=== PATIENT | male | born 1940 | race Caucasian/White ===

== ENCOUNTER 2019-03-08 10:31 | Inpatient (IN) | payer BC, MEDICARE, OTHER ==
[~2019-03-08] VITALS: Ht 180.3 cm; Wt 82.2 kg
[~2019-03-08 10:31] MED LIST: ENAL20TA PO; GLIP10TA13 PO; METF850T10 PO; SIMV40TA3 PO
--- NOTE | 2019-03-08 10:42 | NUR ---
PT BIB [facility] WITH WEAKNESS LAST FEW DAYS WITH FEVERS PER PT. + COUGH AND BS WAS 366. 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
[2019-03-08] MEDS ORDERED: UBID30CA PO (10:54)
[2019-03-08] MEDS ORDERED: OMEG1CAP23 PO (10:54)
[2019-03-08] MEDS ORDERED: SITA25TA PO (10:54)
[2019-03-08] MEDS ORDERED: ROSU20TA2 PO (10:54)
[2019-03-08] MEDS ORDERED: CHOL10003 PO (10:54)
[2019-03-08] MEDS ORDERED: METO25TA35 PO (10:54)
[2019-03-08] MEDS ORDERED: ASPI-496 PO (10:54)
[2019-03-08] MEDS ORDERED: MAGN300C PO (10:54)
[2019-03-08] MEDS ORDERED: MULT-658 PO (10:54)
--- NOTE | 2019-03-08 10:54 | NUR ---
REPORT TO RAFFAELE VILLEGAS
[2019-03-08] MEDS ORDERED: SODIUM CHLORIDE 0.9% 1,000 ML IV ONE (11:10)
[2019-03-08] MEDS ORDERED: SODIUM CHLORIDE FLUSH 10ML SYR IVF ONE (11:30)
[2019-03-08 11:50] LABS: MEAN CORPUSCULAR HEMOGLOBIN 31.5 pg (27.5-34.5); MEAN CORPUSCULAR HGB CONC 33.3 g/dL (33.2-36.2); MEAN CORPUSCULAR VOLUME 94.8 fL (81-97); MEAN PLATELET VOLUME 10.4 fL (7.4-10.4); PLATELET COUNT 156 x10^3/uL (130-400); RED BLOOD COUNT 5.26 x10^6/uL (4.38-5.82); RED CELL DISTRIBUTION WIDTH 13.5 % (9.4-14.8)
[2019-03-08 12:04] LABS: INTERNATIONAL NORMALIZED RATIO 1.16 (0.93-1.1); PROTHROMBIN TIME 12.1 Seconds (9.6-11.5)
[2019-03-08 12:08] LABS: ALANINE AMINOTRANSFERASE 31 U/L (12-78); ALBUMIN 3.1 g/dL (3.4-5.0); ANION GAP 12 mmol/L (5-15); CALCIUM 8.6 mg/dL (8.5-10.1); CHLORIDE 99 mmol/L (98-107); CREATININE 1.92 mg/dL (0.7-1.3)
[2019-03-08 12:11] LABS: ALKALINE PHOSPHATASE 72 U/L (45-117); BILIRUBIN,TOTAL 1.3 mg/dL (0.2-1.0); TOTAL PROTEIN 7.7 g/dL (6.4-8.2)
[2019-03-08 12:13] LABS: MD YES
[2019-03-08 12:15] LABS: BAND#(MANUAL) 1.28 x10^3/uL; BANDS%(MANUAL) 10 % (0-7); LYMPH#(MANUAL) 0.38 x10^3/uL (1-3.4); LYMPHS% (MANUAL) 3 % (22-44); MONOS#(MANUAL) 0.64 x10^3/uL (0.3-2.7); MONOS% (MANUAL) 5 % (2-9); SEGS% (MANUAL) 82 % (42-75)
[2019-03-08 12:16] LABS: <PLATELET ESTIMATE> ADEQUATE; <PLT MORPHOLOGY> NORMAL PLT MORPH; <RBC MORPHOLOGY> NORMAL
[2019-03-08] MEDS ORDERED: CEFTRIAXONE PMX 1GM/50ML 50 ML IV ONE (12:30)
[2019-03-08] MEDS ORDERED: PIPERACILLIN/TAZO/PMX 3.375GM 50 ML IVPB ONE (12:30)
[2019-03-08] MEDS ORDERED: INSULIN REGULAR 100 UNITS/ML, 3ML VIAL SQ-INSULIN ONE (12:30)
[2019-03-08] MEDS ORDERED: SODIUM CHLORIDE 0.9% 1,000ML IVBOLUS ONE (12:30)
[2019-03-08] MEDS ORDERED: VANCOMYCIN PER PHARMACY MC ONE (12:30)
[2019-03-08] MEDS ORDERED: PIPERACILLIN/TAZO/PMX 3.375GM 50 ML ONE (12:39)
[2019-03-08] MEDS ORDERED: INSULIN SINGLE DOSE, ER ONE (12:58)
[2019-03-08] MEDS ORDERED: VANCOMYCIN 1,700 MG in SODIUM CHLORIDE 0.9% 250 ML IV ONE (13:00)
[2019-03-08] MEDS ORDERED: VANCOMYCIN 1,800 MG in SODIUM CHLORIDE 0.9% 250 ML IV ONE ×2 (13:00→16:30)
[2019-03-08 13:02] LABS: CULTURE INDICATED? YES; MICROSCOPIC INDICATED
[2019-03-08 13:05] LABS: ACETONE, SERUM Small (20mg/dL) mg/dL (Negative)
[2019-03-08 15:04] VITALS: BP 126/74
[2019-03-08] MEDS ORDERED: LABETALOL 5MG/ML, 20ML IVPush PRN (15:30)
[2019-03-08] MEDS ORDERED: VANCOMYCIN PER PHARMACY MC PRN (15:30)
[2019-03-08] MEDS ORDERED: BISACODYL 10 MG SUPP PR PRN (15:30)
[2019-03-08] MEDS ORDERED: DEXTROSE 4 GM TAB.CHEW PO PRN (15:30)
[2019-03-08] MEDS ORDERED: DOCUSATE 100 MG CAPSULE PO PRN (15:30)
[2019-03-08] MEDS ORDERED: PHARMACY MAY ADJ FOR RENAL FX MC PRN (15:30)
[2019-03-08] MEDS ORDERED: ONDANSETRON 2MG/ML, 2ML IVPush PRN (15:30)
[2019-03-08] MEDS ORDERED: POLYETHYLENE GLYCOL 17 GM PACKET PO PRN (15:30)
[2019-03-08] MEDS ORDERED: MAGNESIUM SULFATE PMX 2GM/50ML 50 ML IV ONE (15:30)
[2019-03-08] MEDS ORDERED: GLUCAGON 1 MG IM PRN (15:30)
[2019-03-08] MEDS ORDERED: DEXTROSE 50%, 50ML SYRINGE IVPush PRN (15:30)
[2019-03-08] MEDS ORDERED: VANCOMYCIN 1,700 MG in SODIUM CHLORIDE 0.9% 250 ML IV SCH (16:00)
[2019-03-08] MEDS ORDERED: PHARMACOKINETIC MONITORING MC PRN (16:00)
[2019-03-08] MEDS ORDERED: ENOXAPARIN 40 MG/0.4 ML SQ SCH (16:00)
[2019-03-08] MEDS ORDERED: PHARMACOKINETIC CONSULTATION MC ONE (16:00)
[2019-03-08] MEDS: SODIUM CHLORIDE 0.9% 1,000 ML IV SCH (16:20)
[2019-03-08] MEDS: INSULIN LISPRO 100 UNITS/ML, PEN SQ-INSULIN SCH ×2 (16:32→19:57)
[2019-03-08] MEDS: ACETAMINOPHEN 325 MG TABLET PO PRN ×2 (16:38→21:31)
[2019-03-08 17:46] LABS: CREATININE,URINE RANDOM 56.6 mg/dL
[2019-03-08 19:21] VITALS: BP 110/67
[2019-03-08] MEDS: PIPERACILLIN/TAZO/PMX 3.375GM 50 ML IV SCH (19:56)
[2019-03-08] MEDS: INSULIN GLARGINE 100 UNITS/ML, PEN SQ-INSULIN SCH (19:57)
[2019-03-08] MEDS: SODIUM CHLORIDE FLUSH 10ML SYR IVF SCH (20:34)
[2019-03-09] VITALS (11 sets, daily range): BP systolic 106–133; BP diastolic 69–85
[2019-03-09] MEDS: SODIUM CHLORIDE 0.9% 1,000 ML IV SCH (00:38)
[2019-03-09] MEDS: PIPERACILLIN/TAZO/PMX 3.375GM 50 ML IV SCH ×3 (02:11→14:07)
[2019-03-09] MEDS: ASPIRIN 81 MG TABLET EC PO SCH (04:53)
[2019-03-09 06:18] LABS: MEAN CORPUSCULAR HEMOGLOBIN 31.7 pg (27.5-34.5); MEAN CORPUSCULAR HGB CONC 33.2 g/dL (33.2-36.2); MEAN CORPUSCULAR VOLUME 95.6 fL (81-97); MEAN PLATELET VOLUME 10.7 fL (7.4-10.4); PLATELET COUNT 153 x10^3/uL (130-400); RED BLOOD COUNT 4.59 x10^6/uL (4.38-5.82); RED CELL DISTRIBUTION WIDTH 13.8 % (9.4-14.8)
[2019-03-09 06:29] LABS: ALANINE AMINOTRANSFERASE 30 U/L (12-78); ALBUMIN 2.3 g/dL (3.4-5.0); ANION GAP 11 mmol/L (5-15); CALCIUM 7.7 mg/dL (8.5-10.1); CHLORIDE 104 mmol/L (98-107); CREATININE 1.69 mg/dL (0.7-1.3)
[2019-03-09 06:39] LABS: ALKALINE PHOSPHATASE 61 U/L (45-117); BILIRUBIN,TOTAL 1.5 mg/dL (0.2-1.0); TOTAL PROTEIN 6.4 g/dL (6.4-8.2); VANCOMYCIN,RANDOM 9.9 mcg/mL
[2019-03-09 07:26] LABS: MD YES
[2019-03-09 07:27] LABS: BAND#(MANUAL) 1.26 x10^3/uL; BANDS%(MANUAL) 9 % (0-7); LYMPH#(MANUAL) 0.14 x10^3/uL (1-3.4); LYMPHS% (MANUAL) 1 % (22-44); MONOS#(MANUAL) 0.42 x10^3/uL (0.3-2.7); MONOS% (MANUAL) 3 % (2-9); SEG#(MANUAL) 12.18 x10^3/uL (1.8-6.8); SEGS% (MANUAL) 87 % (42-75)
[2019-03-09 07:28] LABS: <PLATELET ESTIMATE> ADEQUATE; <RBC MORPHOLOGY> NORMAL; LARGE PLATELETS 1+
[2019-03-09] MEDS ORDERED: SODIUM CHLORIDE 0.9% 1,000 ML IV SCH (07:30)
[2019-03-09] MEDS: AZITHROMYCIN 500 MG in SODIUM CHLORIDE 0.9% 250 ML IV SCH (07:53)
[2019-03-09] MEDS: INSULIN LISPRO 100 UNITS/ML, PEN SQ-INSULIN SCH ×4 (07:53→23:59)
[2019-03-09] MEDS ORDERED: SODIUM CHLORIDE 0.9% 1,000ML IVBOLUS ONE (08:00)
[2019-03-09] MEDS ORDERED: METOPROLOL 1 MG/ML, 5ML ONE (08:48)
[2019-03-09] MEDS ORDERED: METOPROLOL 1 MG/ML, 5ML IVPush SCH (09:00)
[2019-03-09] MEDS ORDERED: TEMPLATE NON-FORMULARY MED. (Rosuvastatin Calcium** (Crestor**) 20 MG) PO SCH (09:00)
[2019-03-09] MEDS ORDERED: METOPROLOL TARTRATE 25 MG TABLET PO SCH ×2 (09:00→15:30)
[2019-03-09] MEDS: INSULIN GLARGINE 100 UNITS/ML, PEN SQ-INSULIN SCH (09:00)
[2019-03-09] MEDS: SODIUM CHLORIDE FLUSH 10ML SYR IVF SCH ×2 (09:26→21:08)
[2019-03-09] MEDS ORDERED: METOPROLOL 1 MG/ML, 5ML IVPush ONE ×3 (09:30→09:40)
[2019-03-09] MEDS: CHOLECALCIFEROL 1,000 UNIT TABLET PO SCH (09:50)
[2019-03-09] MEDS ORDERED: DILTIAZEM 125 MG in SODIUM CHLORIDE 0.9% 100 ML IV SCH ×2 (11:30→12:30)
[2019-03-09] MEDS ORDERED: VANCOMYCIN 1,700 MG in SODIUM CHLORIDE 0.9% 250 ML IV SCH (12:00)
[2019-03-09] MEDS: HEPARIN 5,000 UNITS/ML, 1ML SQ SCH (14:07)
[2019-03-09] MEDS: GUAIFENESIN 200 MG TABLET PO SCH (16:24)
[2019-03-09] MEDS: LINEZOLID PMX 600MG/300ML 300 ML IV SCH (16:37)
[2019-03-09] MEDS ORDERED: SODIUM BICARBONATE 650 MG TABLET ONE (17:10)
[2019-03-09] MEDS ORDERED: DIGOXIN 0.25 MG/ML, 2ML IVPush ONE (18:00)
[2019-03-09] MEDS ORDERED: FENTANYL PF 100 MCG/2ML ONE (20:31)
[2019-03-09] MEDS ORDERED: ROCURONIUM 10MG/ML,5ML ONE (20:34)
[2019-03-09] MEDS ORDERED: PROPOFOL 10 MG/ML, 20ML ONE (20:34)
[2019-03-09] MEDS ORDERED: SUCCINYLCHOLINE 20 MG/ML, 10ML ONE (20:34)
[2019-03-09] MEDS ORDERED: DEXAMETHASONE 4 MG/ML, 1ML ONE (20:36)
[2019-03-09] MEDS ORDERED: EPINEPHRINE 1 MG/ML, 1ML ONE (20:36)
[2019-03-09] MEDS ORDERED: MIDAZOLAM 1 MG/ML, 5ML ONE (20:55)
[2019-03-09] MEDS ORDERED: LACTATED RINGERS 1,000 ML IVBOLUS ONE (21:30)
[2019-03-09] MEDS ORDERED: PROPOFOL 100 ML IV ONE (21:43)
[2019-03-09] MEDS ORDERED: PROPOFOL 100 ML IV PRN (21:46)
[2019-03-09] MEDS: PROPOFOL 100 ML IV PRN (21:50)
[2019-03-09] MEDS ORDERED: PHARMACY MAY ADJ FOR RENAL FX MC SCH (22:00)
[2019-03-09] MEDS ORDERED: FENTANYL PF 100 MCG/2ML IVPush PRN (22:00)
[2019-03-09] MEDS: ALBUTEROL SULFATE 2.5 MG/3 ML INLINE SCH (22:00)
[2019-03-09] MEDS ORDERED: BISACODYL 10 MG SUPP PR PRN (22:00)
[2019-03-09] MEDS ORDERED: DEXTROSE 4 GM TAB.CHEW PO PRN (22:00)
[2019-03-09] MEDS ORDERED: SENNA/DOCUSATE TABLET NG PRN (22:00)
[2019-03-09] MEDS ORDERED: SENNA 176 MG/5 ML ORAL SOL NG PRN (22:00)
[2019-03-09] MEDS ORDERED: DEXTROSE 50%, 50ML SYRINGE IVPush PRN (22:00)
[2019-03-09] MEDS ORDERED: LACTULOSE 20 GM/30 ML UDC NG PRN (22:00)
[2019-03-09] MEDS ORDERED: GLUCAGON 1 MG IM PRN (22:00)
[2019-03-09] MEDS ORDERED: LIDOCAINE-MPF 1%, 2ML ENDO PRN (22:00)
[2019-03-09] MEDS ORDERED: AMIODARONE 150 MG in DEXTROSE 5% 100 ML IV STA (22:06)
[2019-03-09] MEDS ORDERED: SODIUM BICARBONATE 1 MEQ/ML, 50ML VIAL IVPush STA (22:30)
[2019-03-09] MEDS ORDERED: FILTER 0.22 MICRON IV PRN (22:30)
[2019-03-09 22:34] LABS: BASOPHILS # (AUTO) 0.01 x10^3/uL (0-0.1); BASOPHILS % (AUTO) 0 % (0-1); EOSINOPHILS # (AUTO) 0.01 x10^3/uL (0-0.4); EOSINOPHILS % (AUTO) 0 % (1-7); LYMPHOCYTES # (AUTO) 0.88 x10^3/uL (1-3.4); LYMPHOCYTES % (AUTO) 6 % (22-44); MD NO; MONOCYTES # (AUTO) 0.32 x10^3/uL (0.2-0.8); MONOCYTES % (AUTO) 2 % (2-9); NEUTROPHILS # (AUTO) 14.16 x10^3/uL (1.8-6.8); NEUTROPHILS % (AUTO) 92 % (42-75); RED BLOOD COUNT 5.06 x10^6/uL (4.38-5.82)
[2019-03-09 22:43] LABS: INTERNATIONAL NORMALIZED RATIO 1.2 (0.93-1.1); PROTHROMBIN TIME 12.5 Seconds (9.6-11.5)
[2019-03-09 22:47] LABS: MEAN CORPUSCULAR HEMOGLOBIN 31.2 pg (27.5-34.5); MEAN CORPUSCULAR HGB CONC 32.5 g/dL (33.2-36.2); MEAN CORPUSCULAR VOLUME 96.3 fL (81-97); MEAN PLATELET VOLUME 10.7 fL (7.4-10.4); PLATELET COUNT 194 x10^3/uL (130-400); RED CELL DISTRIBUTION WIDTH 14.2 % (9.4-14.8)
[2019-03-09 22:59] LABS: ANION GAP 9 mmol/L (5-15); CALCIUM 7.8 mg/dL (8.5-10.1); CHLORIDE 108 mmol/L (98-107); CREATININE 1.77 mg/dL (0.7-1.3); TRIGLYCERIDES 182 mg/dL (50-200)
[2019-03-09 23:18] LABS: TROPONIN I 0.257 ng/mL (0.000-0.045)
[2019-03-09] MEDS: AMIODARONE 900 MG in DEXTROSE 5% 482 ML IV PRN (23:24)
[2019-03-10] MEDS: PIPERACILLIN/TAZO/PMX 3.375GM 50 ML IV SCH ×4 (00:01→17:56)
[2019-03-10] MEDS: HEPARIN 5,000 UNITS/ML, 1ML SQ SCH ×4 (00:02→21:01)
[2019-03-10] MEDS: INSULIN GLARGINE 100 UNITS/ML, PEN SQ-INSULIN SCH ×3 (00:05→20:47)
[2019-03-10] MEDS: METOPROLOL TARTRATE 25 MG TABLET PO SCH ×4 (00:32→20:28)
[2019-03-10] MEDS: SODIUM BICARBONATE 650 MG TABLET PO SCH ×3 (00:33→20:29)
[2019-03-10] MEDS: GUAIFENESIN 200 MG TABLET PO SCH ×5 (00:33→20:29)
[2019-03-10] MEDS: FAMOTIDINE 20 MG/2 ML IV SCH ×2 (00:47→11:48)
[2019-03-10] MEDS: ALBUTEROL SULFATE 2.5 MG/3 ML INLINE SCH ×5 (02:00→22:10)
[2019-03-10 04:29] LABS: ALANINE AMINOTRANSFERASE 28 U/L (12-78); ALBUMIN 1.7 g/dL (3.4-5.0); ANION GAP 7 mmol/L (5-15); CALCIUM 7.2 mg/dL (8.5-10.1); CHLORIDE 110 mmol/L (98-107); CREATININE 1.58 mg/dL (0.7-1.3)
[2019-03-10 04:33] LABS: MEAN CORPUSCULAR HEMOGLOBIN 31.6 pg (27.5-34.5); MEAN CORPUSCULAR VOLUME 95.8 fL (81-97); MEAN PLATELET VOLUME 10.9 fL (7.4-10.4); PLATELET COUNT 154 x10^3/uL (130-400); RED BLOOD COUNT 4.14 x10^6/uL (4.38-5.82); RED CELL DISTRIBUTION WIDTH 13.8 % (9.4-14.8)
[2019-03-10 04:34] LABS: ALKALINE PHOSPHATASE 51 U/L (45-117); BILIRUBIN,TOTAL 0.8 mg/dL (0.2-1.0); TOTAL PROTEIN 5.5 g/dL (6.4-8.2); TROPONIN I 0.201 ng/mL (0.000-0.045)
[2019-03-10] MEDS: LINEZOLID PMX 600MG/300ML 300 ML IV SCH ×2 (04:59→15:56)
[2019-03-10] MEDS: PROPOFOL 100 ML IV PRN (04:59)
[2019-03-10 05:00] LABS: MD YES
[2019-03-10 05:02] LABS: <PLATELET ESTIMATE> ADEQUATE; ANISOCYTOSIS 1+; BAND#(MANUAL) 1.02 x10^3/uL; BANDS%(MANUAL) 9 % (0-7); LARGE PLATELETS 1+; LYMPH#(MANUAL) 0.57 x10^3/uL (1-3.4); LYMPHS% (MANUAL) 5 % (22-44); MONOS#(MANUAL) 0.11 x10^3/uL (0.3-2.7); MONOS% (MANUAL) 1 % (2-9); REACTIVE LYMPHS # (MANUAL) 0.11 x10^3/uL (0-0); REACTIVE LYMPHS % (MANUAL) 1 % (0-0); SEG#(MANUAL) 9.49 x10^3/uL (1.8-6.8); SEGS% (MANUAL) 84 % (42-75)
[2019-03-10] MEDS: ASPIRIN 81 MG TABLET EC PO SCH (05:16)
[2019-03-10] MEDS ORDERED: ATORVASTATIN 40 MG TABLET PO SCH (09:00)
[2019-03-10] MEDS: INSULIN LISPRO 100 UNITS/ML, PEN SQ-INSULIN SCH ×2 (09:10→20:46)
[2019-03-10] MEDS: CHOLECALCIFEROL 1,000 UNIT TABLET PO SCH (09:21)
[2019-03-10] MEDS: SODIUM CHLORIDE FLUSH 10ML SYR IVF SCH ×4 (09:21→20:52)
[2019-03-10] MEDS: AZITHROMYCIN 500 MG in SODIUM CHLORIDE 0.9% 250 ML IV SCH (09:48)
[2019-03-10] MEDS ORDERED: DILTIAZEM 125 MG in SODIUM CHLORIDE 0.9% 100 ML IV SCH ×2 (11:30→12:30)
[2019-03-10] MEDS ORDERED: INSULIN LISPRO 100 UNITS/ML, PEN SQ-INSULIN SCH ×2 (15:00→16:00)
[2019-03-10] MEDS ORDERED: FUROSEMIDE 20 MG/2 ML ONE (15:15)
[2019-03-10] MEDS: INSULIN REGULAR 100 UNITS/ML, 3ML VIAL SQ-INSULIN SCH ×2 (15:22→20:47)
[2019-03-10] MEDS ORDERED: FUROSEMIDE 20 MG/2 ML IV ONE (15:30)
[2019-03-10] MEDS ORDERED: DILTIAZEM 5 MG/ML, 5ML IVPush PRN (17:00)
[2019-03-10] MEDS: ATORVASTATIN 80 MG TABLET PO SCH (20:28)
[2019-03-10] MEDS: AMIODARONE 900 MG in DEXTROSE 5% 482 ML IV PRN (23:12)
[2019-03-11] MEDS: PIPERACILLIN/TAZO/PMX 3.375GM 50 ML IV SCH ×2 (00:43→07:49)
[2019-03-11] MEDS: ALBUTEROL SULFATE 2.5 MG/3 ML INLINE SCH ×6 (02:10→22:20)
[2019-03-11] MEDS: INSULIN REGULAR 100 UNITS/ML, 3ML VIAL SQ-INSULIN SCH ×2 (03:00→09:59)
[2019-03-11] MEDS: INSULIN LISPRO 100 UNITS/ML, PEN SQ-INSULIN SCH ×4 (03:00→21:32)
[2019-03-11] MEDS: LINEZOLID PMX 600MG/300ML 300 ML IV SCH (04:28)
[2019-03-11 04:35] LABS: MEAN CORPUSCULAR HEMOGLOBIN 31.4 pg (27.5-34.5); MEAN CORPUSCULAR HGB CONC 32.9 g/dL (33.2-36.2); MEAN CORPUSCULAR VOLUME 95.5 fL (81-97); MEAN PLATELET VOLUME 10.9 fL (7.4-10.4); PLATELET COUNT 200 x10^3/uL (130-400); RED BLOOD COUNT 4.29 x10^6/uL (4.38-5.82); RED CELL DISTRIBUTION WIDTH 14.2 % (9.4-14.8)
[2019-03-11 04:46] LABS: MD YES
[2019-03-11 04:51] LABS: <PLATELET ESTIMATE> ADEQUATE; <RBC MORPHOLOGY> NORMAL; BAND#(MANUAL) 1.14 x10^3/uL; BANDS%(MANUAL) 8 % (0-7); LYMPH#(MANUAL) 0.99 x10^3/uL (1-3.4); LYMPHS% (MANUAL) 7 % (22-44); MONOS#(MANUAL) 0.43 x10^3/uL (0.3-2.7); MONOS% (MANUAL) 3 % (2-9); SEG#(MANUAL) 11.64 x10^3/uL (1.8-6.8); SEGS% (MANUAL) 82 % (42-75)
[2019-03-11 04:52] LABS: LARGE PLATELETS 1+
[2019-03-11] MEDS: GUAIFENESIN 200 MG TABLET PO SCH ×4 (05:04→21:24)
[2019-03-11] MEDS: HEPARIN 5,000 UNITS/ML, 1ML SQ SCH ×2 (05:05→16:50)
[2019-03-11] MEDS: METOPROLOL TARTRATE 25 MG TABLET PO SCH ×3 (05:05→21:30)
[2019-03-11] MEDS: ASPIRIN 81 MG TABLET EC PO SCH (05:05)
[2019-03-11 07:00] LABS: CALCIUM 7.9 mg/dL (8.5-10.1); CHLORIDE 117 mmol/L (98-107); CREATININE 1.56 mg/dL (0.7-1.3)
[2019-03-11 07:24] LABS: ANION GAP 7 mmol/L (5-15)
[2019-03-11] MEDS: AZITHROMYCIN 500 MG in SODIUM CHLORIDE 0.9% 250 ML IV SCH (07:49)
[2019-03-11] MEDS ORDERED: FUROSEMIDE 20 MG/2 ML IV SCH (09:00)
[2019-03-11] MEDS: FAMOTIDINE 20 MG/2 ML IV SCH (09:55)
[2019-03-11] MEDS: SODIUM CHLORIDE FLUSH 10ML SYR IVF SCH ×2 (09:55→21:23)
[2019-03-11] MEDS: APIXABAN 5 MG TABLET PO SCH ×2 (09:56→21:23)
[2019-03-11] MEDS: AMIODARONE 200 MG TABLET PO SCH ×2 (09:56→21:23)
[2019-03-11] MEDS: CHOLECALCIFEROL 1,000 UNIT TABLET PO SCH (09:56)
[2019-03-11] MEDS: SODIUM BICARBONATE 650 MG TABLET PO SCH (09:56)
[2019-03-11] MEDS: INSULIN GLARGINE 100 UNITS/ML, PEN SQ-INSULIN SCH ×2 (10:00→21:32)
[2019-03-11] MEDS: CEFTRIAXONE PMX 2GM/50ML 50 ML IVPB SCH (10:06)
[2019-03-11] MEDS: DEXMEDETOMIDINE 200 MCG in SODIUM CHLORIDE 0.9% 48 ML IV PRN ×2 (14:29→21:22)
[2019-03-11] MEDS ORDERED: AMIODARONE 150 MG in DEXTROSE 5% 100 ML IV ONE (14:30)
[2019-03-11] MEDS ORDERED: AMIODARONE 50 MG/ML, 3ML IVPush ONE (14:30)
[2019-03-11] MEDS: ATORVASTATIN 80 MG TABLET PO SCH (21:24)
[2019-03-12] MEDS: ALBUTEROL SULFATE 2.5 MG/3 ML INLINE SCH ×2 (02:55→06:00)
[2019-03-12] MEDS: INSULIN LISPRO 100 UNITS/ML, PEN SQ-INSULIN SCH ×4 (03:00→20:24)
[2019-03-12 04:33] LABS: MEAN CORPUSCULAR HEMOGLOBIN 31.6 pg (27.5-34.5); MEAN CORPUSCULAR HGB CONC 33.1 g/dL (33.2-36.2); MEAN CORPUSCULAR VOLUME 95.3 fL (81-97); MEAN PLATELET VOLUME 10.8 fL (7.4-10.4); PLATELET COUNT 207 x10^3/uL (130-400); RED BLOOD COUNT 4.09 x10^6/uL (4.38-5.82); RED CELL DISTRIBUTION WIDTH 13.9 % (9.4-14.8)
[2019-03-12 05:39] LABS: MD YES
[2019-03-12 05:41] LABS: BAND#(MANUAL) 0.43 x10^3/uL; BANDS%(MANUAL) 5 % (0-7); EOS#(MANUAL) 0.09 x10^3/uL (0.0-0.4); EOS% (MANUAL) 1 % (1-7); LYMPH#(MANUAL) 0.52 x10^3/uL (1-3.4); LYMPHS% (MANUAL) 6 % (22-44); MONOS#(MANUAL) 0.34 x10^3/uL (0.3-2.7); MONOS% (MANUAL) 4 % (2-9); PMNS WITH VACUOLES 1+; SEG#(MANUAL) 7.22 x10^3/uL (1.8-6.8); SEGS% (MANUAL) 84 % (42-75)
[2019-03-12 05:42] LABS: <PLATELET ESTIMATE> ADEQUATE; <RBC MORPHOLOGY> NORMAL; LARGE PLATELETS 1+
[2019-03-12] MEDS: GUAIFENESIN 200 MG TABLET PO SCH ×4 (05:59→20:30)
[2019-03-12] MEDS: METOPROLOL TARTRATE 25 MG TABLET PO SCH ×3 (05:59→21:43)
[2019-03-12 06:56] LABS: ANION GAP 7 mmol/L (5-15); CALCIUM 7.8 mg/dL (8.5-10.1); CHLORIDE 117 mmol/L (98-107); CREATININE 1.59 mg/dL (0.7-1.3)
[2019-03-12] MEDS: FAMOTIDINE 20 MG/2 ML IV SCH (09:10)
[2019-03-12] MEDS: CHOLECALCIFEROL 1,000 UNIT TABLET PO SCH (09:10)
[2019-03-12] MEDS: AMIODARONE 200 MG TABLET PO SCH ×2 (09:11→20:16)
[2019-03-12] MEDS: APIXABAN 5 MG TABLET PO SCH ×2 (09:11→20:16)
[2019-03-12] MEDS: SODIUM CHLORIDE FLUSH 10ML SYR IVF SCH ×2 (09:12→20:17)
--- NOTE | 2019-03-12 10:40 | NUR ---
TF GOAL: PROMOTE @ 80ML/HR (if propofol resumes: 70ml/hr)
[2019-03-12] MEDS: INSULIN GLARGINE 100 UNITS/ML, PEN SQ-INSULIN SCH ×2 (11:06→20:22)
[2019-03-12] MEDS: CEFTRIAXONE PMX 2GM/50ML 50 ML IVPB SCH (11:06)
[2019-03-12] MEDS: ATORVASTATIN 80 MG TABLET PO SCH (20:16)
[2019-03-13 04:35] LABS: BASOPHILS # (AUTO) 0.02 x10^3/uL (0-0.1); BASOPHILS % (AUTO) 0 % (0-1); EOSINOPHILS # (AUTO) 0.17 x10^3/uL (0-0.4); EOSINOPHILS % (AUTO) 2 % (1-7); LYMPHOCYTES # (AUTO) 0.63 x10^3/uL (1-3.4); LYMPHOCYTES % (AUTO) 7 % (22-44); MD NO; MEAN CORPUSCULAR HEMOGLOBIN 31.3 pg (27.5-34.5); MEAN CORPUSCULAR VOLUME 94.9 fL (81-97); MEAN PLATELET VOLUME 10.4 fL (7.4-10.4); MONOCYTES # (AUTO) 0.36 x10^3/uL (0.2-0.8); MONOCYTES % (AUTO) 4 % (2-9); NEUTROPHILS # (AUTO) 7.53 x10^3/uL (1.8-6.8); NEUTROPHILS % (AUTO) 86 % (42-75); PLATELET COUNT 232 x10^3/uL (130-400); RED CELL DISTRIBUTION WIDTH 14.2 % (9.4-14.8)
[2019-03-13 04:50] LABS: ANION GAP 6 mmol/L (5-15); CALCIUM 7.8 mg/dL (8.5-10.1); CHLORIDE 113 mmol/L (98-107); CREATININE 1.22 mg/dL (0.7-1.3)
[2019-03-13] MEDS: METOPROLOL TARTRATE 25 MG TABLET PO SCH (05:17)
[2019-03-13] MEDS: GUAIFENESIN 200 MG TABLET PO SCH ×4 (05:17→20:20)
[2019-03-13] MEDS: FAMOTIDINE 20 MG/2 ML IV SCH (08:34)
[2019-03-13] MEDS: APIXABAN 5 MG TABLET PO SCH ×2 (08:34→20:20)
[2019-03-13] MEDS: AMIODARONE 200 MG TABLET PO SCH ×2 (08:34→20:20)
[2019-03-13] MEDS: CHOLECALCIFEROL 1,000 UNIT TABLET PO SCH (08:34)
[2019-03-13] MEDS: INSULIN GLARGINE 100 UNITS/ML, PEN SQ-INSULIN SCH ×2 (08:35→20:36)
[2019-03-13] MEDS: INSULIN LISPRO 100 UNITS/ML, PEN SQ-INSULIN SCH ×4 (08:36→20:36)
[2019-03-13] MEDS: CEFTRIAXONE PMX 2GM/50ML 50 ML IVPB SCH (11:11)
[2019-03-13] MEDS: SODIUM CHLORIDE FLUSH 10ML SYR IVF SCH ×2 (11:12→20:35)
[2019-03-13 14:39] VITALS: BP 132/62
[2019-03-13] MEDS ORDERED: FAMOTIDINE 20 MG/2 ML IV SCH (15:30)
[2019-03-13 20:15] VITALS: BP 150/76
[2019-03-13] MEDS: FAMOTIDINE 20 MG TABLET PO SCH (20:20)
[2019-03-13] MEDS: ATORVASTATIN 80 MG TABLET PO SCH (20:20)
[2019-03-13] MEDS ORDERED: METOPROLOL TARTRATE 25 MG TABLET PO SCH (21:00)
[2019-03-14 03:15] VITALS: BP 141/71
[2019-03-14 04:30] LABS: ANION GAP 6 mmol/L (5-15); BASOPHILS # (AUTO) 0.01 x10^3/uL (0-0.1); BASOPHILS % (AUTO) 0 % (0-1); CALCIUM 8.2 mg/dL (8.5-10.1); CHLORIDE 115 mmol/L (98-107); EOSINOPHILS # (AUTO) 0.46 x10^3/uL (0-0.4); EOSINOPHILS % (AUTO) 6 % (1-7); LYMPHOCYTES # (AUTO) 0.71 x10^3/uL (1-3.4); LYMPHOCYTES % (AUTO) 9 % (22-44); MD NO; MEAN CORPUSCULAR HEMOGLOBIN 31.9 pg (27.5-34.5); MEAN CORPUSCULAR VOLUME 93.9 fL (81-97); MEAN PLATELET VOLUME 9.2 fL (7.4-10.4); MONOCYTES # (AUTO) 0.12 x10^3/uL (0.2-0.8); MONOCYTES % (AUTO) 2 % (2-9); NEUTROPHILS # (AUTO) 6.33 x10^3/uL (1.8-6.8); NEUTROPHILS % (AUTO) 83 % (42-75); PLATELET COUNT 281 x10^3/uL (130-400); RED BLOOD COUNT 4.21 x10^6/uL (4.38-5.82); RED CELL DISTRIBUTION WIDTH 13.9 % (9.4-14.8)
[2019-03-14] MEDS: GUAIFENESIN 200 MG TABLET PO SCH ×4 (06:18→21:30)
[2019-03-14] MEDS: INSULIN LISPRO 100 UNITS/ML, PEN SQ-INSULIN SCH ×4 (07:00→21:00)
[2019-03-14 08:00] VITALS: BP 151/84
[2019-03-14] MEDS: APIXABAN 5 MG TABLET PO SCH ×2 (09:34→21:30)
[2019-03-14] MEDS: FAMOTIDINE 20 MG TABLET PO SCH ×2 (09:35→21:30)
[2019-03-14] MEDS: CHOLECALCIFEROL 1,000 UNIT TABLET PO SCH (09:35)
[2019-03-14] MEDS: INSULIN GLARGINE 100 UNITS/ML, PEN SQ-INSULIN SCH ×2 (09:50→21:31)
[2019-03-14] MEDS: METOPROLOL TARTRATE 50 MG TABLET PO SCH ×2 (10:00→18:14)
[2019-03-14] MEDS: SODIUM CHLORIDE FLUSH 10ML SYR IVF SCH (10:28)
[2019-03-14] MEDS: CEFTRIAXONE PMX 2GM/50ML 50 ML IVPB SCH (10:29)
[2019-03-14 14:00] VITALS: BP 146/76
[2019-03-14 17:37] VITALS: BP 144/75
[2019-03-14 18:41] VITALS: BP 139/72
[2019-03-14] MEDS: AMIODARONE 200 MG TABLET PO SCH (21:30)
[2019-03-14] MEDS: ATORVASTATIN 80 MG TABLET PO SCH (21:30)
[2019-03-15 01:54] VITALS: BP 133/68
[2019-03-15 05:27] LABS: BASOPHILS # (AUTO) 0.01 x10^3/uL (0-0.1); BASOPHILS % (AUTO) 0 % (0-1); EOSINOPHILS % (AUTO) 6 % (1-7); LYMPHOCYTES # (AUTO) 0.72 x10^3/uL (1-3.4); LYMPHOCYTES % (AUTO) 8 % (22-44); MD NO; MEAN CORPUSCULAR HEMOGLOBIN 30.7 pg (27.5-34.5); MEAN CORPUSCULAR HGB CONC 32.6 g/dL (33.2-36.2); MEAN CORPUSCULAR VOLUME 94.4 fL (81-97); MONOCYTES # (AUTO) 0.51 x10^3/uL (0.2-0.8); MONOCYTES % (AUTO) 6 % (2-9); NEUTROPHILS # (AUTO) 7.44 x10^3/uL (1.8-6.8); NEUTROPHILS % (AUTO) 81 % (42-75); PLATELET COUNT 322 x10^3/uL (130-400); RED BLOOD COUNT 4.44 x10^6/uL (4.38-5.82)
[2019-03-15 05:31] LABS: CHLORIDE 113 mmol/L (98-107)
[2019-03-15 05:44] LABS: ANION GAP 6 mmol/L (5-15); CALCIUM 8.4 mg/dL (8.5-10.1); CREATININE 0.98 mg/dL (0.7-1.3)
[2019-03-15 05:57] VITALS: BP 124/69
[2019-03-15] MEDS: METOPROLOL TARTRATE 50 MG TABLET PO SCH ×2 (05:58→17:27)
[2019-03-15] MEDS: GUAIFENESIN 200 MG TABLET PO SCH ×4 (05:58→20:47)
[2019-03-15 07:30] VITALS: BP 137/76
[2019-03-15] MEDS: APIXABAN 5 MG TABLET PO SCH (08:30)
[2019-03-15] MEDS: CHOLECALCIFEROL 1,000 UNIT TABLET PO SCH (08:44)
[2019-03-15] MEDS: FAMOTIDINE 20 MG TABLET PO SCH ×2 (08:44→20:47)
[2019-03-15] MEDS: LISINOPRIL 5 MG TABLET PO SCH (08:44)
[2019-03-15] MEDS: AMIODARONE 200 MG TABLET PO SCH ×2 (08:44→20:46)
[2019-03-15] MEDS: INSULIN GLARGINE 100 UNITS/ML, PEN SQ-INSULIN SCH ×2 (08:44→20:48)
[2019-03-15] MEDS: INSULIN LISPRO 100 UNITS/ML, PEN SQ-INSULIN SCH ×4 (08:45→20:48)
[2019-03-15] MEDS: CEFTRIAXONE PMX 2GM/50ML 50 ML IVPB SCH (10:07)
[2019-03-15 13:01] VITALS: BP 110/63
[2019-03-15 15:00] LABS: OCCULT BLOOD POSITIVE (NEGATIVE)
[2019-03-15 16:18] LABS: TROPONIN I 0.047 ng/mL (0.000-0.045)
[2019-03-15 17:24] VITALS: BP 116/63
[2019-03-15 18:53] VITALS: BP 102/62
[2019-03-15] MEDS: ATORVASTATIN 80 MG TABLET PO SCH (20:47)
[2019-03-16 01:53] VITALS: BP 116/61
[2019-03-16 04:44] LABS: BASOPHILS # (AUTO) 0.01 x10^3/uL (0-0.1); BASOPHILS % (AUTO) 0 % (0-1); EOSINOPHILS # (AUTO) 0.53 x10^3/uL (0-0.4); EOSINOPHILS % (AUTO) 5 % (1-7); LYMPHOCYTES # (AUTO) 1.04 x10^3/uL (1-3.4); LYMPHOCYTES % (AUTO) 10 % (22-44); MD NO; MEAN CORPUSCULAR HEMOGLOBIN 31.3 pg (27.5-34.5); MEAN CORPUSCULAR HGB CONC 32.7 g/dL (33.2-36.2); MEAN CORPUSCULAR VOLUME 95.6 fL (81-97); MEAN PLATELET VOLUME 9.8 fL (7.4-10.4); MONOCYTES # (AUTO) 0.64 x10^3/uL (0.2-0.8); MONOCYTES % (AUTO) 6 % (2-9); NEUTROPHILS # (AUTO) 7.85 x10^3/uL (1.8-6.8); NEUTROPHILS % (AUTO) 78 % (42-75); PLATELET COUNT 339 x10^3/uL (130-400); RED BLOOD COUNT 4.36 x10^6/uL (4.38-5.82); RED CELL DISTRIBUTION WIDTH 14.1 % (9.4-14.8)
[2019-03-16 04:53] LABS: ANION GAP 4 mmol/L (5-15); CALCIUM 8.1 mg/dL (8.5-10.1); CHLORIDE 116 mmol/L (98-107); CREATININE 1.05 mg/dL (0.7-1.3)
[2019-03-16] MEDS: GUAIFENESIN 200 MG TABLET PO SCH ×4 (04:55→20:19)
[2019-03-16 07:08] VITALS: BP 115/72
[2019-03-16] MEDS: INSULIN LISPRO 100 UNITS/ML, PEN SQ-INSULIN SCH ×4 (08:23→20:20)
[2019-03-16] MEDS ORDERED: REGADENOSON 0.4 MG/5 ML SYRINGE ONE (08:51)
[2019-03-16] MEDS: CEFTRIAXONE PMX 2GM/50ML 50 ML IVPB SCH (11:40)
[2019-03-16] MEDS: LISINOPRIL 5 MG TABLET PO SCH (11:41)
[2019-03-16] MEDS: AMIODARONE 200 MG TABLET PO SCH ×2 (11:41→20:19)
[2019-03-16] MEDS: CHOLECALCIFEROL 1,000 UNIT TABLET PO SCH (11:41)
[2019-03-16] MEDS: FAMOTIDINE 20 MG TABLET PO SCH ×2 (11:41→20:19)
[2019-03-16] MEDS: INSULIN GLARGINE 100 UNITS/ML, PEN SQ-INSULIN SCH ×2 (11:42→20:20)
[2019-03-16] MEDS: METOPROLOL TARTRATE 50 MG TABLET PO SCH ×2 (11:47→17:19)
[2019-03-16 13:19] VITALS: BP 121/68
[2019-03-16 17:20] VITALS: BP 147/75
[2019-03-16] MEDS: ATORVASTATIN 80 MG TABLET PO SCH (20:19)
[2019-03-16 20:28] VITALS: BP 133/66
[2019-03-16 20:41] LABS: OCCULT BLOOD NEGATIVE (NEGATIVE)
[2019-03-17 01:36] VITALS: BP 131/60
[2019-03-17 05:34] LABS: BASOPHILS # (AUTO) 0.03 x10^3/uL (0-0.1); BASOPHILS % (AUTO) 0 % (0-1); EOSINOPHILS # (AUTO) 0.45 x10^3/uL (0-0.4); EOSINOPHILS % (AUTO) 4 % (1-7); LYMPHOCYTES # (AUTO) 1.09 x10^3/uL (1-3.4); LYMPHOCYTES % (AUTO) 11 % (22-44); MD NO; MEAN CORPUSCULAR HEMOGLOBIN 31.5 pg (27.5-34.5); MEAN CORPUSCULAR HGB CONC 32.9 g/dL (33.2-36.2); MEAN CORPUSCULAR VOLUME 95.6 fL (81-97); MEAN PLATELET VOLUME 9.7 fL (7.4-10.4); MONOCYTES % (AUTO) 7 % (2-9); NEUTROPHILS # (AUTO) 8.08 x10^3/uL (1.8-6.8); NEUTROPHILS % (AUTO) 78 % (42-75); PLATELET COUNT 328 x10^3/uL (130-400); RED BLOOD COUNT 4.26 x10^6/uL (4.38-5.82); RED CELL DISTRIBUTION WIDTH 14.5 % (9.4-14.8)
[2019-03-17 05:43] LABS: ALBUMIN 1.7 g/dL (3.4-5.0); ANION GAP 3 mmol/L (5-15); CALCIUM 8.1 mg/dL (8.5-10.1); CHLORIDE 116 mmol/L (98-107)
[2019-03-17 05:48] LABS: ALANINE AMINOTRANSFERASE 54 U/L (12-78); ALKALINE PHOSPHATASE 68 U/L (45-117); BILIRUBIN,TOTAL 0.6 mg/dL (0.2-1.0); CREATININE 1.12 mg/dL (0.7-1.3); TOTAL PROTEIN 5.3 g/dL (6.4-8.2)
[2019-03-17 05:58] VITALS: BP 125/68
[2019-03-17] MEDS: METOPROLOL TARTRATE 50 MG TABLET PO SCH (06:01)
[2019-03-17] MEDS: GUAIFENESIN 200 MG TABLET PO SCH ×2 (06:01→11:31)
[2019-03-17] MEDS: INSULIN LISPRO 100 UNITS/ML, PEN SQ-INSULIN SCH ×2 (07:00→11:43)
[2019-03-17 08:17] VITALS: BP 117/62
[2019-03-17] MEDS ORDERED: APIXABAN 5 MG TABLET PO SCH (09:30)
[2019-03-17] MEDS: CHOLECALCIFEROL 1,000 UNIT TABLET PO SCH (09:37)
[2019-03-17] MEDS: LISINOPRIL 5 MG TABLET PO SCH (09:37)
[2019-03-17] MEDS: FAMOTIDINE 20 MG TABLET PO SCH (09:37)
[2019-03-17] MEDS: AMIODARONE 200 MG TABLET PO SCH (09:38)
[2019-03-17] MEDS: INSULIN GLARGINE 100 UNITS/ML, PEN SQ-INSULIN SCH (09:39)
[2019-03-17] MEDS: CEFTRIAXONE PMX 2GM/50ML 50 ML IVPB SCH (11:31)
[2019-03-17] MEDS ORDERED: GUAI200T37 PO (11:34)
[2019-03-17] MEDS ORDERED: APIX5TAB PO (11:34)
[2019-03-17] MEDS ORDERED: ATOR-2 PO (11:34)
[2019-03-17] MEDS ORDERED: AMIO200T42 PO (11:34)
[2019-03-17] MEDS ORDERED: METO25TA35 PO (11:41)
[2019-03-17] MEDS ORDERED: INSU100I13 SQ-INSULIN (11:41)
[2019-03-17] MEDS ORDERED: LISI5TAB7 PO (11:41)
[2019-03-17] MEDS ORDERED: CHOL10003 PO (11:41)
[2019-03-17 12:19] VITALS: BP 148/71
[2019-03-17] MEDS ORDERED: METOPROLOL TARTRATE 25 MG TABLET PO SCH (18:00)
== END 2019-03-17 15:16 | DRG 853 ==
LOC: ED 11:42 → EDIP 12:32 → 4EST 14:34 → 5SO 03-09 15:52 → CCU 03-09 21:10 → 4WST 03-14 17:10
PROVIDERS: ADMIT Internal Medicine; ATTEND Internal Medicine
PROC: 5A1945Z Respiratory Ventilation, 24-96 Consecutive Hours (ICD-10-PCS; 2019-03-09)
PROC: 0T778DZ Dilation of Left Ureter with Intraluminal Device, Via Natural or Artificial Opening Endoscopic (ICD-10-PCS; principal; 2019-03-09 20:30)
PROC: 0BH17EZ Insertion of Endotracheal Airway into Trachea, Via Natural or Artificial Opening (ICD-10-PCS; 2019-03-11)
DX: A41.51 Sepsis due to Escherichia coli [E. coli] (principal); J96.01 Acute respiratory failure with hypoxia; N17.0 Acute kidney failure with tubular necrosis; J18.9 Pneumonia, unspecified organism; R65.21 Severe sepsis with septic shock; E87.1 Hypo-osmolality and hyponatremia; D68.69 Other thrombophilia; I42.9 Cardiomyopathy, unspecified; I48.92 Unspecified atrial flutter; I50.22 Chronic systolic (congestive) heart failure; J98.11 Atelectasis; N13.6 Pyonephrosis; Z99.11 Dependence on respirator [ventilator] status; Z66 Do not resuscitate; E11.65 Type 2 diabetes mellitus with hyperglycemia; E78.5 Hyperlipidemia, unspecified; I11.0 Hypertensive heart disease with heart failure; I25.10 Atherosclerotic heart disease of native coronary artery without angina pectoris; I44.7 Left bundle-branch block, unspecified; I48.0 Paroxysmal atrial fibrillation; K80.20 Calculus of gallbladder without cholecystitis without obstruction; N21.0 Calculus in bladder; R32 Unspecified urinary incontinence; Z79.4 Long term (current) use of insulin; Z87.442 Personal history of urinary calculi; Z95.5 Presence of coronary angioplasty implant and graft
CPT/HCPCS: 36415; 36600; 71045; 71250; 74018; 74176; 78452; 80048; 80053; 80202; 81001; 82010; 82272; 82436; 82570; 82800; 82803; 82962; 83036; 83605; 83735; 84100; 84133; 84145; 84300; 84443; 84478; 84484; 85014; 85018; 85025; 85610; 85730; 87040; 87070; 87077; 87081; 87086; 87186; 87205; 93005; 93017; 93306; 94002; 94003; 94640; 96365; 96372; G0378; J0171; J0456; J0696; J1100; J1644; J1650; J1815; J2020; J2250; J2543; J2704; J2785; J3010; J3370; J7613; A9502; C1758; C1769; C2617; C9898; J0282; J0330; J1160; J1940; J3475; J3490; J7030; J7050; J7060; J7120